=== PATIENT | female | born 1945 | race Caucasian/White ===

== ENCOUNTER 2017-04-29 13:20 | Observation (INO) | payer MEDICARE ==
[~2017-04-29] VITALS: Ht 157.5 cm; Wt 62.2 kg
[2017-04-29 13:20] VITALS: BP 108/71
[2017-04-29 14:04] LABS: LYMPH # 2.2 K/mm3 (0.7-4.5); LYMPH % 33.5 % (10-50.0)
[2017-04-29 14:06] LABS: HEMOGLOBIN 12.1 g/dL (12.2-16.2)
--- NOTE | 2017-04-29 14:38 | RADIOLOGY REPORT PS360 ---
CT HEAD WITHOUT CONTRAST CT BONE WINDOWS included HISTORY: SYNCOPAL EPISODE passed out this morning 2 minutes. HISTORY of stroke ORDERING PHYSICIAN : Enmanuel Meyer MD PATIENT AGE: 72 years GENDER: Female PROCEDURE: Routine axial images headwithout contrast. Brain & bone windows: CT head without contrast COMPARISON :Previous CT head without contrast 03/25/2013 FINDINGS: Diffuse cerebral atrophy similar to the previous 2012 study. Atrophy and encephalomalacia most evident at the left occipital lobe from prior old insult, infarct most evident at the left occipital lobe. With these atrophy changes there is resulting in enlargement of the posterior left lateral ventricle, with prominent sulci throughout the posterior left cerebral hemisphere. Again overall pattern is similar and unchanged since 2012 an reflects old infarct posteriorly on left.. Left sylvian fissure is more prominent than the right as well. Faint physiologic calcification left basal ganglia more than right. Posterior fossa unremarkable No acute intracranial findings. No hemorrhage. No mass effect or mass lesion. No subdural nor extra-axial collection. The skull is intact. Mild inflammatory changes ethmoid air cells bilaterally partially imaged and noted. Sphenoid frontal sinuses are clear as well as top maxillary sinus.. Mastoid air cells, middle ear & IACs are unremarkable. Cerumen at the left external canal. IMPRESSION: No acute intracranial findings. Stable Cerebral atrophy reflect old left occipital infarct . Atrophy & encephalomalacia most pronounced left occipital lobe reflecting old such. Otherwise again note diffuse cerebral, more evident throughout the left cerebral hemisphere than right. No new features
--- NOTE | 2017-04-29 17:18 | Emergency Room Report ---
History of Present Illness Time Seen by MD Fuller Presenting Problem in Triage Pt arrived:Ambulance Stretcher Presenting Problem:PER REPORT PT STATES WAS RIDING ON THE TRACTOR, FELT HOT ALL OVER SUDDENLY PT FAMILY REPORTS PT "PASSED OUT" Onset of symptoms date/time:04/29/17/ or onset unknown for:MEDICAL HX UNKNOWN Treatment Prior to Arrival: #20 L AC, IVF, EKG FORMING MACHINE UPKEEP MECHANIC Provided by:DEFENSIVE LINE COACH Sepsis Risk Assessment: Temp: 98.0 B/P: 111/69 MAP: 83 Pulse: 60 Resp: 20 Recent fever? N Clinical Suspician of Infection? N Mental Status: 1 - Regular (Normal Baseline) Sepsis Risk:Low Sepsis Risk Have you (or family members/close friends) recently traveled outside the [place]? N If Yes, where/when: Have you had exposure to infectious disease within the past month? N TB? Other? Specify: Source patient, RN notes reviewed Exam Limitations no limitations Comment Pt had a syncopal episode this afternoon while riding a tractor with her and was reported out for about 5 minutes. NO shaking, no incontinence and no pain anywhere. In the ED she is not orthostatic either. She has had a history of TIA's in the past and is on Plavix for that Cardiac Chest Pain Chest pain indicative of cardiac No ALLERGIES Coded Allergies: No Known Allergies (04/29/17) Home Medications Reported Medications Amlodipine Besylate (Amlodipine) Gabapentin DONEPEZIL HCL (Donepezil 10MG Tablet) CLOPIDOGREL BISULFATE (Clopidogrel) History Medical History General CAD? No Angina: No IN: No Hypertension? No Hyperlipidemia? No CHF? No COPD? No Asthma? No Thyroid Problems? No Hypothyroidism? No CVA? No Seizures? No Diabetes? No GB Disease: No MRSA? No TB? No Cancer? No More? Yes Additional hx: "MEMORY PROBLEMS" Immunization Hx DT/Tetanus 5-10 YRS Surgical Hx Previous Surgery?Y GOITER REMOVED BREAST BIOPSY Social History Smoking Hx Smoker: Current Every Day Smoker Tobacco: Yes Type Cigarettes Packs/day < 1 Pack Alcohol Alcohol: No Review of Systems All Other Systems Reviewed and Negative Constitutional see HPI Psychiatric/Neurological see HPI Physical Exam Vital Signs Vital Signs Date Time Temp Pulse Resp B/P Pulse O2 O2 Flow FiO2 Ox Delivery Rate 04/29 1655 56 18 118/65 99 04/29 1615 56 18 131/74 97 04/29 1522 60 20 111/69 96 04/29 1422 70 20 133/97 97 04/29 1335 61 128/57 04/29 1332 75 121/65 04/29 1330 52 119/67 04/29 1320 98.0 54 18 108/71 94 General Appearance normal appearance, WD/WN, no apparent distress Respiratory Status No: respiratory distress. Cardiovascular normal exam, regular rate/rhythm Neurologic alert, latin teacher II-XII nml as tested, normal exam Medical Decision Making LABS/Meds/Orders Pt receiving controlled substance in ED? No Results/Orders Laboratory Tests 04/29/17 1340: Sodium 143, Potassium 5.0, Chloride 107, Carbon Dioxide 28, BUN 23 H, Creatinine 1.2 H, Estimated Creat Clear 45 L, Estimated GFR (MDRD) 44 L, Glucose 95, Calcium 8.4 L, Total Bilirubin 0.5, AST 12 L, ALT 12, Alkaline Phosphatase 52, Creatine Kinase 194 H, CK-MB (CK-2) Rel Index 2.4, CK and CKMB Interp 4.6 H, Troponin I 0.02, Total Protein 6.8, Albumin 3.4, Globulin 3.4 H, Albumin/Globulin Ratio 1.0 L, WBC 6.4, RBC 3.99 L, Hgb 12.1 L, Hct 35.8 L, MCV 89.6, RDW 13.0, Plt Count 211, MPV 8.3, Gran % 55.6, Gran # 3.6, Lymphocytes % 33.5, Monocytes % 7.2, Eosinophils % 2.8, Basophils % 0.8, Lymphocytes # 2.2, Monocytes # 0.5, Eosinophils # 0.2, Basophils # 0.1, PUBS MCHC 33.8, MCH 30.3 Current Medication Orders Sig/Debi Start time Last Medication Dose Route Stop Time Status Admin Sodium Chloride 10 ML PRN PRN 04/29 1330 AC IV 04/30 132 Orders Procedure Date/time Status DIET-NOTHING BY MOUTH 04/29 D Complete ELECTROCARDIOGRAM REQUEST 04/[address] HEAD REQ 04/29 132 Active IV SALINE LOCK 04/29 132 Active FINISH PRODUCTION MANAGER 04/29 132 Active ORTHOSTATIC B/P 04/29 1323 Active CBC WITH AUTO DIFF 09/02 1323 Complete CARDIAC ENZYMES 04/29 1323 Complete CHEM 12 PROFILE 04/29 1323 Complete 12 LEAD EKG-BESSON (INITIAL) 04/29 1320 Active Departure Departure Time of Disposition 171 Disposition Still a Patient Clinical Impression Primary Impression: TIA (transient ischemic attack) Qualifiers: Transient cerebral ischemia type: unspecified Qualified Code: G45.9 - Transient cerebral ischemic attack, unspecified Condition STABLE Referrals Bin Browning MD (Family) Additional Instructions admitted to OBS to Dr. Browning by Dr. Browning Discharge Counseling Counseled pt/family regarding diagnosis, test results, follow up needs ED Critical Care Critical Care No If Critical Care minutes are documented, the time involved in the performance of seperately reportable procedures was not counted toward critical care time documented. I directly delivered medical care to this critically ill and/or injured patient. Timely evaluation and treatment was necessary to address the significant organ system(s) dysfunction present in this patient. at 1715
--- NOTE | 2017-04-29 17:18 | Emergency Room Report ---
History of Present Illness Time Seen by MD Fuller Presenting Problem in Triage Pt arrived:Ambulance Stretcher Presenting Problem:PER REPORT PT STATES WAS RIDING ON THE TRACTOR, FELT HOT ALL OVER SUDDENLY PT FAMILY REPORTS PT "PASSED OUT" Onset of symptoms date/time:04/29/17/ or onset unknown for:MEDICAL HX UNKNOWN Treatment Prior to Arrival: #20 L AC, IVF, EKG ASSISTED LIVING EXECUTIVE DIRECTOR Provided by:RETORT FURNACE HELPER Sepsis Risk Assessment: Temp: 98.0 B/P: 111/69 MAP: 83 Pulse: 60 Resp: 20 Recent fever? N Clinical Suspician of Infection? N Mental Status: 1 - Regular (Normal Baseline) Sepsis Risk:Low Sepsis Risk Have you (or family members/close friends) recently traveled outside the [place]? N If Yes, where/when: Have you had exposure to infectious disease within the past month? N TB? Other? Specify: Source patient, RN notes reviewed Exam Limitations no limitations Comment Pt had a syncopal episode this afternoon while riding a tractor with her and was reported out for about 5 minutes. NO shaking, no incontinence and no pain anywhere. In the ED she is not orthostatic either. She has had a history of TIA's in the past and is on Plavix for that Cardiac Chest Pain Chest pain indicative of cardiac No ALLERGIES Coded Allergies: No Known Allergies (04/29/17) Home Medications Reported Medications Amlodipine Besylate (Amlodipine) Gabapentin DONEPEZIL HCL (Donepezil 10MG Tablet) CLOPIDOGREL BISULFATE (Clopidogrel) History Medical History General CAD? No Angina: No PR: No Hypertension? No Hyperlipidemia? No CHF? No COPD? No Asthma? No Thyroid Problems? No Hypothyroidism? No CVA? No Seizures? No Diabetes? No GB Disease: No MRSA? No TB? No Cancer? No More? Yes Additional hx: "MEMORY PROBLEMS" Immunization Hx DT/Tetanus 5-10 YRS Surgical Hx Previous Surgery?Y GOITER REMOVED BREAST BIOPSY Social History Smoking Hx Smoker: Current Every Day Smoker Tobacco: Yes Type Cigarettes Packs/day < 1 Pack Alcohol Alcohol: No Review of Systems All Other Systems Reviewed and Negative Constitutional see HPI Psychiatric/Neurological see HPI Physical Exam Vital Signs Vital Signs Date Time Temp Pulse Resp B/P Pulse O2 O2 Flow FiO2 Ox Delivery Rate 04/29 1655 56 18 118/65 99 04/29 1615 56 18 131/74 97 04/29 1522 60 20 111/69 96 04/29 1422 70 20 133/97 97 04/29 1335 61 128/57 04/29 1332 75 121/65 04/29 1330 52 119/67 04/29 1320 98.0 54 18 108/71 94 General Appearance normal appearance, WD/WN, no apparent distress Respiratory Status No: respiratory distress. Cardiovascular normal exam, regular rate/rhythm Neurologic alert, leather cleaner II-XII nml as tested, normal exam Medical Decision Making LABS/Meds/Orders Pt receiving controlled substance in ED? No Results/Orders Laboratory Tests 04/29/17 1340: Sodium 143, Potassium 5.0, Chloride 107, Carbon Dioxide 28, BUN 23 H, Creatinine 1.2 H, Estimated Creat Clear 45 L, Estimated GFR (MDRD) 44 L, Glucose 95, Calcium 8.4 L, Total Bilirubin 0.5, AST 12 L, ALT 12, Alkaline Phosphatase 52, Creatine Kinase 194 H, CK-MB (CK-2) Rel Index 2.4, CK and CKMB Interp 4.6 H, Troponin I 0.02, Total Protein 6.8, Albumin 3.4, Globulin 3.4 H, Albumin/Globulin Ratio 1.0 L, WBC 6.4, RBC 3.99 L, Hgb 12.1 L, Hct 35.8 L, MCV 89.6, RDW 13.0, Plt Count 211, MPV 8.3, Gran % 55.6, Gran # 3.6, Lymphocytes % 33.5, Monocytes % 7.2, Eosinophils % 2.8, Basophils % 0.8, Lymphocytes # 2.2, Monocytes # 0.5, Eosinophils # 0.2, Basophils # 0.1, PUBS MCHC 33.8, MCH 30.3 Current Medication Orders Sig/Debi Start time Last Medication Dose Route Stop Time Status Admin Sodium Chloride 10 ML PRN PRN 04/29 1330 AC IV 04/30 132 Orders Procedure Date/time Status DIET-NOTHING BY MOUTH 04/29 D Complete ELECTROCARDIOGRAM REQUEST 04/[address] HEAD REQ 04/29 132 Active IV SALINE LOCK 04/29 132 Active REGISTERED SAFETY ENGINEER 04/29 132 Active ORTHOSTATIC B/P 04/29 1323 Active CBC WITH AUTO DIFF 09/02 1323 Complete CARDIAC ENZYMES 04/29 1323 Complete CHEM 12 PROFILE 04/29 1323 Complete 12 LEAD EKG-BESSON (INITIAL) 04/29 1320 Active Departure Departure Time of Disposition 171 Disposition Still a Patient Clinical Impression Primary Impression: TIA (transient ischemic attack) Qualifiers: Transient cerebral ischemia type: unspecified Qualified Code: G45.9 - Transient cerebral ischemic attack, unspecified Condition STABLE Referrals Bin Browning MD (Family) Additional Instructions admitted to OBS to Dr. Browning by Dr. Browning Discharge Counseling Counseled pt/family regarding diagnosis, test results, follow up needs ED Critical Care Critical Care No If Critical Care minutes are documented, the time involved in the performance of seperately reportable procedures was not counted toward critical care time documented. I directly delivered medical care to this critically ill and/or injured patient. Timely evaluation and treatment was necessary to address the significant organ system(s) dysfunction present in this patient. at 1712
[2017-04-29 17:52] VITALS: BP 118/65
[2017-04-29 18:05] VITALS: BP 126/78
[2017-04-29 20:30] VITALS: BP 115/54
[2017-04-30] VITALS: BP 114/56
[2017-04-30 04:10] VITALS: BP 127/65
[2017-04-30 07:06] LABS: HEMOGLOBIN 11.5 g/dL (12.2-16.2); LYMPH % 27.4 % (10-50.0)
[2017-04-30 07:37] VITALS: BP 128/68
--- NOTE | 2017-04-30 09:31 | PHARMACY CLINIC NOTE ---
Patient Demographics Patient Demographics Admission date: 04/29/17 Date: 04/30/17 Time: 0930 Allergies Coded Allergies: No Known Allergies (04/29/17) HEIGHT- FT: 5 IN: 2.00 K.199 VTE General Information Labs: Laboratory Tests 04/30 04/29 0535 1340 Hematology Hgb (12.2 - 16.2 g/dL) 11.5 L 12.1 L Hct (37.0 - 47.0 %) 35.1 L 35.8 L Plt Count (142 - 424 K/mm3) 205 211 Disclaimer The following section includes nursing documentation that has been pulled in for pharmacy review. Patient's VTE score: 1 Patient's VTE Risk: VERY LOW RISK Clinical trial participant? No VTE prophylaxis [id number] VTE prophylaxis ordered? Yes Type of prophylaxis/treatment: HELENE at 0930
--- NOTE | 2017-04-30 10:52 | Discharge Summary Standard ---
HP/DC combined ([facility]) Date of admission: 04/29/17 Chief complaint: Passed out History: History of Present Illness: 72 year old patient with history of vascular dementia presented to the ER yesterday with her . She had reportedly passed out after feeling very hot while standing to ride a tractor. Patient was wearing several layers of clothing and began to feel faint. Her pulled the tractor over and stopped and patient had decreased level of consciousness for a brief time. He reported no seizure activity or loss of bowel or bladder function. Patient did vomit a small amount a couple of times after this episode yesterday. Patient denies sick contacts. She states she had not eaten or drank anything yesterday prior to this episode. Past Medical History: Medical History: CAD? No Angina: No LA: No Hypertension? No Hyperlipidemia? No CHF? No DVT? No PE? No COPD? No Asthma? No Anemia? No GERD? No Gastric ulcers? No GI Bleed? No Hernia? No Thyroid Problems? No Hypothyroidism? No CVA? No Seizures? No Diabetes? No Renal Insuffiency? No UTI? No Stones? No BPH? No GB Disease: No Nephritic Syndrome? No Asplenia? No Hepatitis? No Sickle Cell Disease? No Arthritis? No Migraines? No Cataracts? Yes Glaucoma? No MRSA? No HIV? No TB? No Anxiety? No Depression? No Cancer? No More? Yes Additional medical history: Vascular dementia Raynaud's disease Chronic low back pain due to lumbar spinal stenosis Surgical history: Previous Surgery?Y GOITER REMOVED BREAST BIOPSY Medications: Reported Medications Gabapentin (Gabapentin 600MG) 300 MG PO BID DONEPEZIL HCL (Donepezil 10MG Tablet) 10 MG PO DAILY 90 Days CLOPIDOGREL BISULFATE (Clopidogrel) 75 MG PO DAILY 90 Days Allergies: Coded Allergies: No Known Allergies (04/29/17) Family History: Family history: Postive for: CAD. Social History: Smoking Hx: Tobacco: Yes Smoker: Current Every Day Smoker Type: Cigarettes Packs/day: < 1 Pack Are you/the child exposed to second-hand smoke: Yes Alcohol: Alcohol: No Hx of Drug Use: Drug Use? No Patien't marital status is: Patient's support system is: good Review of Systems: Patient unresponsive? No Constitutional No: fatigue. ENT No: ear ache, nose bleed. Cardiovascular No: chest pain. Respiratory No: shortness of air, productive cough (sputum). GI No: diarrhea. (female) No: frequency. Skin No: rash. Eyes No: vision loss. Musculoskeletal Positive for: lumbar pain. Psychiatric No: insomnia. Vital signs: Vital Signs Date Time Temp Pulse Resp B/P Pulse O2 O2 Flow FiO2 Ox Delivery Rate 04/30 0737 97.4 58 18 128/68 99 ROOM AIR 04/30 0410 97.6 56 20 127/65 96 09/ 0000 98.0 60 18 114/56 95 ROOM AIR 04/29 2030 97.7 67 20 115/54 97 04/29 2030 97.7 67 20 115/54 97 ROOM AIR 04/29 1805 97.8 59 20 126/78 99 ROOM AIR 04/29 1752 56 04/29 1752 98.0 56 18 118/65 04/29 1752 99 ROOM AIR 04/29 1742 98.0 56 18 118/65 99 04/29 1655 56 18 118/65 99 04/29 1615 56 18 131/74 97 / 1522 60 20 111/69 96 / 1422 70 20 133/97 97 / 1335 61 128/57 04/29 1332 75 121/65 04/29 1330 52 119/67 04/29 1320 98.0 54 18 108/71 94 Vital Signs Result Date Time Pulse Ox 94 09/ 1320 B/P 108/71 04/29 1320 Temp 98.0 / 1320 Pulse 54 / 1320 Resp 18 04/29 1320 O2 Delivery ROOM AIR 04/29 1752 Physical Exam: Exam: General appearance: alert, awake, no acute distress Eyes: anicteric ENT: mucous membranes moist Neck: supple Cardiovascular: regular rate & rhythm Respiratory: clear to auscultation ABD: normal bowel sounds, soft, no tenderness Extremities: no peripheral edema Musculoskeletal: equal muscle strength Skin: warm Neuro: pcb design engineer II-XII nml as tested, no deficit Lab data: Labs: Laboratory Tests 04/30/17 0535: Sodium 143, Potassium 4.1, Chloride 110 H, Carbon Dioxide 25, BUN 22 H, Creatinine 1.1 H, Estimated Creat Clear 46 L, Estimated GFR (MDRD) 49 L, Glucose 85, Calcium 8.0 L, WBC 7.1, RBC 3.89 L, Hgb 11.5 L, Hct 35.1 L, MCV 90.2, RDW 13.2, Plt Count 205, MPV 8.5, Gran % 60.2, Gran # 4.3, Lymphocytes % 27.4, Monocytes % 7.5, Eosinophils % 4.1, Basophils % 0.7, Lymphocytes # 2.0, Monocytes # 0.5, Eosinophils # 0.3, Basophils # 0.1, PUBS MCHC 32.8, MCH 29.6 04/29/17 1930: Creatine Kinase 195 H, CK-MB (CK-2) Rel Index 2.1, CK and CKMB Interp 4.1 H, Troponin I < 0.02 04/29/17 1340: Sodium 143, Potassium 5.0, Chloride 107, Carbon Dioxide 28, BUN 23 H, Creatinine 1.2 H, Estimated Creat Clear 45 L, Estimated GFR (MDRD) 44 L, Glucose 95, Calcium 8.4 L, Total Bilirubin 0.5, AST 12 L, ALT 12, Alkaline Phosphatase 52, Creatine Kinase 194 H, CK-MB (CK-2) Rel Index 2.4, CK and CKMB Interp 4.6 H, Troponin I 0.02, Total Protein 6.8, Albumin 3.4, Globulin 3.4 H, Albumin/Globulin Ratio 1.0 L, WBC 6.4, RBC 3.99 L, Hgb 12.1 L, Hct 35.8 L, MCV 89.6, RDW 13.0, Plt Count 211, MPV 8.3, Gran % 55.6, Gran # 3.6, Lymphocytes % 33.5, Monocytes % 7.2, Eosinophils % 2.8, Basophils % 0.8, Lymphocytes # 2.2, Monocytes # 0.5, Eosinophils # 0.2, Basophils # 0.1, PUBS MCHC 33.8, MCH 30.3 Diagnosis(es): 1. Vasovagal episode 2. Dementia 3. Raynauds disease 4. Nicotine dependence, uncomplicated 5. Anemia 6. Renal insufficiency Plan: Discharge home today. Course: Patient was admitted after having what appears to be a vasovagal reaction to feeling very hot. She has done well since admission and has had no further neurologic problems. Telemetry has been normal and repeat cardiac enzymes showed a normal troponin. Plan to recheck H/H as an outpatient later this week. Discussed smoking cessation. Will resume all home medications at discharge. Discharge medications: Continue taking these medications: Gabapentin (Gabapentin 600MG) 600 MG TABLET 300 MILLIGRAM ORAL TWICE A DAY Comments: Prescriber: VIKTORIYA BROWNING DONEPEZIL HCL (Donepezil 10MG Tablet) 10 MG TABLET 10 MILLIGRAM ORAL DAILY Days = 90 Comments: Prescriber: VIKTORIYA BROWNING CLOPIDOGREL BISULFATE (Clopidogrel) 75 MG TAB 75 MILLIGRAM ORAL DAILY Days = 90 Comments: Prescriber: VIKTORIYA BROWNING Disposition: Discharge home at 1121
[2017-04-30 11:19] VITALS: BP 120/56
[2017-04-30 11:37] VITALS: BP 120/56
== END 2017-04-30 11:40 | disposition home or self-care (01) ==
LOC: ER 13:20 → 2ND 16:58
PROVIDERS: General Practice
DX: R55 Syncope and collapse (principal); F01.50 Vascular dementia, unspecified severity, without behavioral disturbance, psychotic disturbance, mood disturbance, and anxiety; I73.00 Raynaud's syndrome without gangrene; D64.9 Anemia, unspecified; N28.9 Disorder of kidney and ureter, unspecified; M48.06 Spinal stenosis, lumbar region; Z79.02 Long term (current) use of antithrombotics/antiplatelets; Z79.899 Other long term (current) drug therapy; F17.210 Nicotine dependence, cigarettes, uncomplicated